=== PATIENT | male | born 1995 | race Caucasian/White ===

== ENCOUNTER 2022-09-21 07:50 | Emergency (ER) | payer BC, OTHER ==
[~2022-09-21] VITALS: Ht 182.9 cm; Wt 90.7 kg
[2022-09-21] MEDS ORDERED: ONDANSETRON HCL INJ 2MG/ML 2ML 2 MG/ML VIAL IV STA ×2 (07:56→09:42)
[2022-09-21] MEDS ORDERED: KETOROLAC TROMETHAMINE 30 MG/ML VIAL IV STA ×2 (07:56→09:42)
[2022-09-21] MEDS ORDERED: FAMOTIDINE 20 MG/2 ML VIAL IV STA (07:56)
[2022-09-21] MEDS ORDERED: SODIUM CHLORIDE 0.9% 1000ML 1,000 ML IV ONE ×2 (08:00→10:15)
[2022-09-21] MEDS ORDERED: SODIUM CHLORIDE 0.9% 1000ML 1,000 ML ONE ×2 (08:02→09:05)
[2022-09-21] MEDS ORDERED: SODIUM CHLORIDE 0.9% 1000ML 1,000 ML IV SCH (09:00)
[2022-09-21] MEDS ORDERED: IOPAMIDOL 370 MG/ML 100 ML INFUS..BTL INJ ONE (09:19)
[2022-09-21] MEDS ORDERED: KETOROLAC TROMETHAMINE 30 MG/ML VIAL ONE (10:07)
[2022-09-21] MEDS ORDERED: ONDANSETRON ODT4 MG PO (11:24)
[2022-09-21] MEDS ORDERED: FIORICET 50-301 EACH PO (11:25)
== END 2022-09-21 11:44 | disposition home or self-care (01) ==
LOC: FSED 07:54
DX: R50.9 Fever, unspecified (principal); B34.9 Viral infection, unspecified; R10.32 Left lower quadrant pain; R11.2 Nausea with vomiting, unspecified; R51.9 Headache, unspecified; Z20.822 Contact with and (suspected) exposure to COVID-19
CPT/HCPCS: 70450; 74177; 80048; 80076; 81003; 83518; 85025; 87400; 96374; 96375; 96376; 99283; J1885; J2405; J7030; Q9967; U0002